=== PATIENT | female | born 1975 | race Two or more races ===

== ENCOUNTER 2017-05-17 05:15 | Day surgery (SDC) | payer BC ==
[2017-05-15 13:49] VITALS: BMI 27.1
--- NOTE | 2017-05-17 09:18 | HP ---
Past Medical History - Primary Care Physician PCP:: Alli Castellanos - Admission Chief Complaint: 41yo P2 with menometrorrhagia and endometrial mass admitted for hysteroscopy, polypectomy, D&C. History of Present Illness: Breast cancer Menometrorrhagia requiring OCP to decrease the bleeding. Prior office D&C showed benign endometrium. History Source: Patient, Medical Record Limitations to Obtaining History: No Limitations - Past Medical History TAPER MACHINE: No: Alzheimer's, CVA, Dementia, Migraine, Multiple Sclerosis, Peripheral Neuropathy, Parkinson's, Seizure, Syncope, TIA, Vertigo, Other Cardiovascular: No: AFIB, Aneurysm, Aortic Insufficiency, Aortic Stenosis, CAD, CHF, Deep Vein Thrombosis, HTN, Hyperlipdemia, ND, Mitral Insufficiency, Mitral Stenosis, Murmur, Pulmonary Hypertension, Other Pulmonary: No: Asthma, Bronchitis, Cancer, COPD, O2 Dependent, Pneumonia, Previously Intubated, Pulmonary Embolus, Pulmonary Fibrosis, Sleep Apnea, Other Gastrointestinal: No: Ascites, Cancer, Constipation, Crohn's Disease, Diverticulitis, Diverticulosis, Esophageal Varices, Gastritis, GERD, GI Bleed, Hemorrhoids, Hiatal Hernia, Inflamatory Bowel Disease, Irritable Bowel Disease, Pancreatitis, Peptic Ulcer Disease, Ulcerative Colitis, Other Hepatobiliary: No: Cirrhosis, Cholelithiasis, Cholecystitis, Choledocholithiasis , Hepatitis A, Hepatitis B, Hepatitis C, Other Renal/: No: Renal Failure, Renal Inusuff, BPH, Cancer, Hematuria, Hemodialysis , Neurogenic Bladder, Renal Calculi, UTI, Other ...Para: 2 ( x 2) Heme/Onc: Yes: Anemia Infectious Disease: No: AIDS, C-Diff, Herpes Zoster, HIV, MRSA, STD's, Tuberculosis, VREF, Other Psych: No: Addictions, Anxiety, Bipolar, Depression, Panic, Psychosis, Schizophrenia, Other Musculoskeletal: No: Bursitis, Chronic low back pain, Hemiparesis, Hemiplegia, Osteoarthritis, Paraplegia, Other Rheumatology: No: Fibromyalgia, Gout, Lupus, Rheumatoid Arthritis, Sarcoidosis, Vasculitis, Other ENT: No: Allergic Rhinitis, Sinusitis, Other Endocrine: No: Wales's Disease, Brookfield's Disease, Diabetes Insipidus, Diabetes Mellitus, Hyperparathyroidism, Hyperthyroidism, Hypothyroidism, Osteopenia, SIADH, Other Dermatology: No: Basal Cell, Cellulitis, Eczema, Melanoma, Psoriasis, Squamous Cell, Other - Past Surgical History Past Surgical History: Yes: Mastectomy Hx Myomectomy: No Hx Transabdominal Cerclage: No Additional Surgical History: D&C - Smoking History Smoking history: Never smoked Have you smoked in the past 12 months: No - Alcohol/Substance Use Hx Alcohol Use: Yes (ON OCCASSION) History of Substance Use: reports: None - Social History ADL: Independent History of Recent Travel: No Home Medications - Allergies Allergies/Adverse Reactions: Allergies Allergy/AdvReac Type Severity Reaction Status Date / Time Penicillins Allergy Mild Rash Verified 05/15/17 13:50 - Home Medications Home Medications: Ambulatory Orders NK [No Known Home Medication] 05/15/17 Family Disease History - Family Disease History Family History: Unremarkable Review of Systems - Review of Systems Constitutional: reports: No Symptoms Eyes: reports: No Symptoms HENT: reports: No Symptoms Neck: reports: No Symptoms Cardiovascular: reports: No Symptoms Respiratory: reports: No Symptoms Gastrointestinal: reports: No Symptoms Genitourinary: reports: No Symptoms Breasts: reports: No Symptoms Reported, Other (mastectomy) Musculoskeletal: reports: No Symptoms Integumentary: reports: No Symptoms Neurological: reports: No Symptoms Endocrine: reports: No Symptoms Hematology/Lymphatic: reports: No Symptoms Psychiatric: reports: No Symptoms Pain Intensity: 0 Physical Exam-SENIOR C WEB DEVELOPER Vital Signs: Vital Signs Temperature 97.7 F 05/17/17 07:37 Pulse Rate 74 05/17/17 07:37 Respiratory Rate 20 05/17/17 07:37 Blood Pressure 118/76 05/17/17 07:37 O2 Sat by Pulse Oximetry (%) 100 05/17/17 07:38 Constitutional: Yes: Well Nourished, No Distress, Calm Eyes: Yes: WNL, Conjunctiva Clear HENT: Yes: WNL, Atraumatic, Normocephalic Neck: Yes: WNL, Supple, Trachea Midline Cardiovascular: Yes: WNL, Regular Rate and Rhythm Respiratory: Yes: WNL, Regular, CTA Bilaterally Gastrointestinal: Yes: WNL, Normal Bowel Sounds, Soft ...Rectal Exam: Yes: WNL Renal/: Yes: WNL Breast(s): Yes: WNL Musculoskeletal: Yes: WNL Extremities: Yes: WNL Integumentary: Yes: WNL Neurological: Yes: WNL, Alert, Oriented ...Motor Strength: WNL Psychiatric: Yes: WNL, Alert, Oriented Assessment/Plan 41yo P2 with menometrorrhagia and endometrial mass admitted for hysteroscopy, polypectomy, D&C. We had discussed the risks, benefits, alternatives of surgery at length including but not limited to infection, bleeding, scarring, perforation, amenorrhea, infertility, hysterectomy, etc. The pt verbalized understanding and requested to proceed with surgery. I emphasized that all surgeries have risks and no guarantees can be provided
[2017-05-17] MEDS ORDERED: ceFAZolin SODIUM 1 GM VIAL IVPB ONE (09:35)
[2017-05-17] MEDS ORDERED: SILVER NITRATE 75% APPLIC STCK 1 PKT EACH TP ONE (10:48)
[2017-05-17] MEDS ORDERED: PROMETHAZINE HCL 25 MG/1 ML VIAL IVPUSH PRN (11:09)
[2017-05-17] MEDS ORDERED: ONDANSETRON 4 MG/2 ML VIAL IVPUSH PRN (11:09)
[2017-05-17] MEDS ORDERED: oxyCODONE HCL 5 MG TABLET PO PRN (11:09)
--- NOTE | 2017-05-17 11:13 | OP ---
Operative Note - Note: Operative Date: 05/17/17 Pre-Operative Diagnosis: Menometrorrhagia. Endometrial mass. Breast cancer Operation: Hysteroscopy, myomectomy, D&C Findings: Two large posterior submucosal myomas Post-Operative Diagnosis: Same as Pre-op Surgeon: Alli Castellanos Anesthesiologist/BUSINESS INTERN: Cristian Cohn Anesthesia: General Specimens Removed: Uterine fibroids, endometrial curettings. Estimated Blood Loss (mls): 100 Blood Volume Replaced (mls): 0 Fluid Volume Replaced (mls): 1,000 (Hysteroscopy 700ml) Operative Report Dictated: Yes
[2017-05-17] MEDS ORDERED: LACTATED RINGERS SOLUTION 1,000 ML IV SCH (11:15)
[2017-05-17 12:46] VITALS: TEMP 97.8
[2017-05-17 13:58] VITALS: BP 104/76; PULSE 83
--- NOTE | 2017-05-18 07:10 | OP ---
DATE OF OPERATION: 05/17/2017 PREOPERATIVE DIAGNOSES: Menometrorrhagia, endometrial mass, breast cancer. POSTOPERATIVE DIAGNOSES: Menometrorrhagia, endometrial mass, breast cancer. PROCEDURE: Hysteroscopic resection of submucosal fibroids, dilation and curettage. SURGEON: Alli Castellanos MD ANESTHESIOLOGIST: Cristian Cohn MD ANESTHESIA: General. COMPLICATIONS: None. PATHOLOGY: Uterine fibroids and endometrial curettings. IV FLUIDS: 1000 mL. HYSTEROSCOPY FLUID DEFICIT: 700 mL of normal saline. ESTIMATED BLOOD LOSS: Not measured. FINDINGS: Examination under anesthesia revealed a small, slightly retroverted uterus with no pelvic or adnexal masses. Hysterotomy revealed 2 large submucosal fibroids on the posterior uterine wall. The uterine cavity appeared to be slightly enlarged. There were no other lesions. DESCRIPTION OF PROCEDURE: The patient was met preoperatively. Risks, benefits, and alternatives of the surgery were discussed in detail. All questions were answered. The patient requested to proceed with surgery. The patient was brought to the OR with the IV running. She was placed on the surgical table in the supine position. General endotracheal anesthesia was achieved without difficulty. The patient was then placed in a dorsal lithotomy position using adjustable Chang stirrups. The patient was prepped and draped in the usual sterile fashion. A time-out procedure was conducted as per standard protocol. A weighed speculum was introduced inside the vagina with good visualization of the cervix. The anterior cervical lip was grasped with a single-tooth tenaculum. A diagnostic hysteroscopy was then performed without complications. Two large submucosal fibroids were noted on the posterior wall. The cervical os was then dilated to accommodate size 21 Blue dilator. A TruClear resectoscope was then introduced through the cervix into the uterine cavity. A resection of the fibroids was undertaken using the TruClear device. Because of the toughness of the fibroid tissue, the initial resection of the fibroids using a TruClear device failed. The TruClear device jammed approximately 10-15 minutes into surgery. The TruClear device was replaced with a fibroid resectoscope also made by [employer], and further resection of the fibroid was undertaken. After about 5-10 minutes, the second TruClear resectoscope jammed. At that point, the decision was made to proceed with the resection using a Versapoint resectoscope. The instruments were replaced, and resectoscope was assembled. The cervical os was dilated to accommodate size 29 Blue dilator. A Versapoint resectoscope was introduced inside the uterine cavity. Bipolar cautery was then used to completely resect the submucosal component of both fibroids. Good hemostasis was maintained. Once both fibroids were completely resected, the hysteroscope was removed. A vacuum device was used to curette the uterine cavity using suction. All of the tissue was removed from the uterine cavity. A Versapoint resectoscope was then once again introduced into the uterus. The uterine cavity appeared to be within normal limits. No other lesions were noted. Good hemostasis was noted. The hysteroscope was removed, and uterine curettage was performed. Once again, all of the tissue was removed using a vacuum device. Once the procedure was completed, all of the instruments were removed from the patient. Sponge, lap, and instrument counts were correct. A cervical suture was placed at 12 o'clock to ensure hemostasis at the site of the tenaculum. Once again, good hemostasis was confirmed, and the patient was transferred to the recovery room awake and in stable condition. [place] [id number]
--- NOTE | 2017-05-21 12:52 | PATH ---
Surgical Pathology Report Patient Name: KATHRYN KHOURY [facility]. Rec. #: [id number] /Age/Gender: 1975 (Age: 41) / F Account: [id number] Location: [facility] SURGICAL Taken: 05/17/2017 Received: 05/17/2017 Reported: 05/21/2017 Physicians: Alli Castellanos M.D. Specimen(s) Received ENDOMETRIAL CURETTINGS AND FIBROIDS Clinical History Polyp of corpus uteri, menorrhagia Final Diagnosis FIBROIDS, HYSTEROSCOPIC RESECTION AND ENDOMETRIAL CURETTAGE: FRAGMENTS OF BENIGN SMOOTH MUSCLE WIH OVERLYING AND FOCALLY INTERMIXED BENIGN ENDOMETRIUM SUGGESTIVE OF SUBMUCOSAL LEIOMYOMAS/ADENOMYOMA. POLYPOID FRAGMENTS OF DISORDERED PROLIFERATIVE ENDOMETRIUM WITH AREAS SUGGESTIVE OF ENDOMETRIAL POLYP AND FOCAL STROMAL BREAKDOWN CHANGE. FRAGMENTS OF BENIGN ENDOCERVICAL TISSUE AND BENIGN SQUAMOUS EPITHELIUM. Electronically Signed Jhonatan Benedict M.D. Gross Description Received in formalin labeled "fibroids/endometrial curetting" is a 3 g, 4.0 x 3.5 x 0.3 cm aggregate of multiple syed, irregular, firm to rubbery portions of tissue. Also received within the same container is a 4.0 x 3.2 x 0.3 cm aggregate of syed-red soft tissue fragments. The specimen is entirely submitted in 6 cassettes. /05/17/2017 [facility]05/17/2017
== END 2017-05-17 13:57 | disposition home or self-care (01) ==
LOC: JASU-SURG 05:15
PROVIDERS: ATTEND Obstetrics & Gynecology
PROC: 0UDB8ZX Extraction of Endometrium, Via Natural or Artificial Opening Endoscopic, Diagnostic (ICD-10-PCS; principal; 2017-05-17 09:00)
PROC: 0UB98ZZ Excision of Uterus, Via Natural or Artificial Opening Endoscopic (ICD-10-PCS; 2017-05-17 09:00)
DX: N92.1 Excessive and frequent menstruation with irregular cycle (principal); D25.0 Submucous leiomyoma of uterus; C50.919 Malignant neoplasm of unspecified site of unspecified female breast
CPT/HCPCS: 84703; 88305-TC; 94760